=== PATIENT | male | born 1985 | race Caucasian/White ===

== ENCOUNTER 2025-07-15 17:46 | Observation (INO) | payer MEDICAID, MEDICARE ==
[2025-07-15] MEDS ORDERED: Sodium Chloride 0.9% 10 ML Syringe FLUSH PRN (19:04)
[2025-07-15] MEDS ORDERED: Ondansetron 4 MG/2 ML SDV IVPUSH PRN (19:04)
[2025-07-15 19:19] LABS: BASOPHILS PERCENT AUTO 0.5 % (0.0-1.0); EOSINOPHILS PERCENT AUTO 5.0 % (1.0-3.0); LYMPHOCYTES PERCENT AUTO 33.2 % (20.5-50.1); MONOCYTES PERCENT AUTO 10.1 % (2-8); NEUTROPHILS PERCENT AUTO 51.2 % (42.2-75.2); PLATELET COUNT,PLT 394 10^3/uL (150-450); RED BLOOD CELL COUNT 4.55 10^6/uL (4.6-6.2); WHITE BLOOD CELL COUNT,WBC 6.3 10^3/uL (5.0-10.0)
[2025-07-15 19:37] LABS: BLOOD UREA NITROGEN,BUN 21.0 mg/dL (7-18); CARBON DIOXIDE,CO2 27.0 mmol/L (21-32); CHLORIDE,CL 104.0 mmol/L (98-107); CREATININE 1.38 mg/dL (0.70-1.30); EST CRCL DRUG DOSING (CG) 89.11 mL/min; GLUCOSE RANDOM 193.0 mg/dL (70-99); INR 1.0 (0.9-1.2); POTASSIUM,K 4.5 mmol/L (3.5-5.1); SODIUM,NA 144.0 mmol/L (136-145)
[2025-07-15 19:41] LABS: ESTIMATED GFR 67.0 mL/min (>=60)
[2025-07-15] MEDS ORDERED: 50% Dextrose in Water 50 ML Syringe IVPUSH PRN (20:01)
[2025-07-15] MEDS: Insulin Glarg,Human.Rec.Analog 100 Unit/ML 10 ML Vial SUBCUT SCH (21:00)
[2025-07-15] MEDS ORDERED: Insulin Glarg,Human.Rec.Analog 100 Unit/ML 10 ML Vial SUBCUT SCH (21:00)
[2025-07-15 23:34] LABS: IRON,FE 56.0 ug/dL (65-175); PERCENT FE SATURATION 13.3 % (20.0-50.0)
[2025-07-15 23:46] LABS: FOLIC ACID 9.8 ng/mL (8.6-58.9)
[2025-07-16] MEDS ORDERED: 50% Dextrose in Water 50 ML Syringe IVPUSH PRN (07:39)
[2025-07-16 07:58] LABS: BASOPHILS PERCENT AUTO 0.4 % (0.0-1.0); EOSINOPHILS PERCENT AUTO 3.3 % (1.0-3.0); LYMPHOCYTES PERCENT AUTO 18.1 % (20.5-50.1); MONOCYTES PERCENT AUTO 8.1 % (2-8); NEUTROPHILS PERCENT AUTO 70.1 % (42.2-75.2); PLATELET COUNT,PLT 347 10^3/uL (150-450); RED BLOOD CELL COUNT 4.58 10^6/uL (4.6-6.2); WHITE BLOOD CELL COUNT,WBC 8.1 10^3/uL (5.0-10.0)
[2025-07-16] MEDS ORDERED: Non-Formulary Medication 1 Each (Hydroxyzine Hcl 50 MG Tablet) PO SCH (08:00)
[2025-07-16 08:24] LABS: A/G RATIO 0.9; ALANINE AMINOTRANSFERASE,ALT 15.0 U/L (16-63); ASPARTATE AMNIOTRANSFERASE,AST 20.0 U/L (15-37); BILIRUBIN TOTAL 0.5 mg/dL (0.2-1.0); BLOOD UREA NITROGEN,BUN 20.0 mg/dL (7-18); CARBON DIOXIDE,CO2 25.0 mmol/L (21-32); CREATININE 1.45 mg/dL (0.70-1.30); EST CRCL DRUG DOSING (CG) 91.55 mL/min; POTASSIUM,K 4.6 mmol/L (3.5-5.1); PROTEIN TOTAL,TP 7.6 g/dL (6.4-8.2)
[2025-07-16 08:28] LABS: CHLORIDE,CL 95.0 mmol/L (98-107); SODIUM,NA 131.0 mmol/L (136-145)
[2025-07-16 08:30] LABS: ESTIMATED GFR 63.0 mL/min (>=60); GLUCOSE RANDOM 414.0 mg/dL (70-99)
[2025-07-16 08:35] LABS: SEDIMENTATION RATE MANUAL 38 mm/hr (0-15)
[2025-07-16] MEDS: Cholecalciferol (Vitamin D3) 25 MCG Tab PO SCH (09:18)
[2025-07-16] MEDS: Potassium Chloride 10 MEQ Tab.ER PO STA (09:18)
[2025-07-16] MEDS: Magnesium Sulfate 2 GM/50 mL 2 GM in Premix Bag 1 BAG IV ONE (09:19)
[2025-07-16] MEDS: Insulin Glarg,Human.Rec.Analog 100 Unit/ML 10 ML Vial SUBCUT SCH (09:29)
[2025-07-16 13:21] LABS: BLOOD UREA NITROGEN,BUN 22.0 mg/dL (7-18); CARBON DIOXIDE,CO2 24.0 mmol/L (21-32); CHLORIDE,CL 99.0 mmol/L (98-107); CREATININE 1.41 mg/dL (0.70-1.30); EST CRCL DRUG DOSING (CG) 94.14 mL/min; GLUCOSE RANDOM 340.0 mg/dL (70-99); POTASSIUM,K 4.3 mmol/L (3.5-5.1); SODIUM,NA 136.0 mmol/L (136-145)
[2025-07-16 13:22] LABS: ESTIMATED GFR 65.0 mL/min (>=60)
[2025-07-16 17:57] VITALS: BP 129/71; PULSE 78
== END 2025-07-16 13:25 ==
LOC: DL.ED 17:46 → DL.MS 18:32
PROVIDERS: ADMIT Student in an Organized Health Care Education/Training Program; ATTEND Student in an Organized Health Care Education/Training Program
DX: M86.8X7 Other osteomyelitis, ankle and foot (principal); E10.9 Type 1 diabetes mellitus without complications; F41.9 Anxiety disorder, unspecified; F32.A Depression, unspecified; E03.9 Hypothyroidism, unspecified; Z79.890 Hormone replacement therapy; Z79.899 Other long term (current) drug therapy
CPT/HCPCS: 36415; 80048; 80053; 82607; 82728; 82746; 82947; 83036; 83540; 83550; 83735; 85025; 85610; 85651; 86140; 96374; 99284; A9270; J0690; J1815; J3475; J3490; J7030; 96365; 96366; 96375; 96376; G0378